=== PATIENT | female | born 1965 | race Caucasian/White ===

== ENCOUNTER 2019-02-03 15:30 | Emergency (ER) | payer OTHER ==
[2019-02-03 15:50] VITALS: BP 125/77; PULSE 73; TEMP 98.2; BMI 23.3
[2019-02-03] MEDS ORDERED: CYCLOBENZAPRINE HCL 10 MG TABLET (FP) PO ONE (15:53)
[2019-02-03] MEDS ORDERED: KETOROLAC TROMETHAMINE 60 MG/2 ML VIAL IM ONE (15:53)
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
[2019-02-03] MEDS ORDERED: ACETAMINOPHEN 500 MG TABLET (FP) PO ONE (19:10)
[2019-02-03] MEDS ORDERED: diazePAM 5 MG TABLET PO ONE (19:25)
[2019-02-03] MEDS ORDERED: diazePAM 5 MG TABLET ONE (19:44)
[2019-02-03] MEDS ORDERED: ACETAMINOPHEN 500 MG TABLET (FP) ONE (19:44)
== END 2019-02-03 20:01 | disposition home or self-care (01) ==
LOC: JERFT 15:30
DX: M54.2 Cervicalgia (principal); V43.52XA Car driver injured in collision with other type car in traffic accident, initial encounter; Y92.414 Local residential or business street as the place of occurrence of the external cause; Y93.89 Activity, other specified; Y99.8 Other external cause status
CPT/HCPCS: 72125-TC; 99281-25